=== PATIENT | female | born 2000 | race Caucasian/White ===

== ENCOUNTER 2019-06-09 07:34 | Day surgery (SDC) | payer BC ==
[~2019-06-09 07:34] MED LIST: Lactated Ringers 1,000 ML IV SCH; Lidocaine 1% with EPINEPHrine 1:100,000 20 ML MDV ONE; Sodium Chloride 0.9% 10 ML SDV IV PRN; Sodium Chloride 0.9% 10 ML Syringe FLUSH PRN; Sodium Chloride 0.9% 2.5 ML Syringe FLUSH PRN; ceFAZolin 2 GM in Premix Bag 1 BAG IV ONE
[2019-06-09] MEDS ORDERED: Ondansetron 4 MG/2 ML SDV ONE (07:38)
[2019-06-09] MEDS ORDERED: Propofol 200 MG/20 ML SDV ONE ×2 (07:38→08:17)
[2019-06-09] MEDS ORDERED: fentaNYL 100 MCG/2 ML SDV ONE ×2 (07:38→09:47)
[2019-06-09] MEDS ORDERED: Midazolam 1 MG/ML 2 ML SDV ONE (07:38)
--- NOTE | 2019-06-09 07:50 | PCM.PREANE ---
Preanesthetic Assessment - Anesthesia/Transfusion/Family Hx Anesthesia History: Prior Anesthesia Without Reaction Family History of Anesthesia Reaction: No Transfusion History: No Prior Transfusion(s) Intubation History: Unknown - Review of Systems General: No Symptoms Pulmonary: No Symptoms Cardiovascular: No Symptoms Gastrointestinal: No Symptoms Neurological: No Symptoms Other: Reports: None - Physical Assessment Height: 5 ft 3 in Weight: 71.668 kg ASA Class: 2 Mental Status: Alert & Oriented x3 Airway Class: Mallampati = 2 Dentition: Reports: Normal Dentition Thyro-Mental Finger Breadths: 3 Mouth Opening Finger Breadths: 3 ROM/Head Extension: Full Lungs: Clear to Auscultation, Normal Respiratory Effort Cardiovascular: Regular Rate, Regular Rhythm - Allergies Allergies/Adverse Reactions: Allergies Allergy/AdvReac Type Severity Reaction Status Date / Time lactose Allergy Stomach Verified 06/04/19 10:40 Upset - Blood Blood Available: No - Anesthesia Plan Pre-Op Medication Ordered: None - Acknowledgements Anesthesia Type Planned: General Anesthesia Pt an Appropriate Candidate for the Planned Anesthesia: Yes Alternatives and Risks of Anesthesia Discussed w Pt/Guardian: Yes Pt/Guardian Understands and Agrees with Anesthesia Plan: Yes PreAnesthesia Questionnaire HEENT History: Reports: None Cardiovascular History: Reports: None Respiratory History: Reports: None Gastrointestinal History: Reports: None Genitourinary History: Reports: None Musculoskeletal History: Reports: None Neurological History: Reports: None Psychiatric History: Reports: None Endocrine/Metabolic History: Reports: None Hematologic History: Reports: None Immunologic History: Reports: None Oncologic (Cancer) History: Reports: None Dermatologic History: Reports: Eczema - Past Surgical History Head Surgeries/Procedures: Reports: None HEENT Surgical History: Reports: Oral Surgery, Other (See Below) Other HEENT Surgeries/Procedures: left ear surgery and wisdom teeth extraction Cardiovascular Surgical History: Reports: None Respiratory Surgical History: Reports: None GI Surgical History: Reports: None Female Surgical History: Reports: None Endocrine Surgical History: Reports: None Neurological Surgical History: Reports: None Musculoskeletal Surgical History: Reports: None Oncologic Surgical History: Reports: None - SUBSTANCE USE Smoking Status *Q: Former Smoker Tobacco Use Within Last Twelve Months: Other (See Below) Recreational Drug Use History: No - HOME MEDS Home Medications: Home Meds . [No Known Home Meds] 06/04/19 [History] - CURRENT (IN HOUSE) MEDS Current Meds: Current Medications Lactated Ringer's (Ringers, Lactated) 1,000 mls @ 125 mls/hr IV ASDIRECTED MARQUIS Sodium Chloride (Saline Flush) 10 ml FLUSH ASDIRECTED PRN PRN Reason: Keep Vein Open Sodium Chloride (Saline Flush) 2.5 ml FLUSH ASDIRECTED PRN PRN Reason: Keep Vein Open Sodium Chloride (Normal Saline) 10 ml IV ASDIRECTED PRN PRN Reason: IV Use Discontinued Medications Fentanyl (Sublimaze) Confirm Administered Dose 100 mcg .ROUTE .STK-MED ONE Stop: 06/09/19 07:39 Cefazolin Sodium/Dextrose 2 gm (/ Premix) 50 mls @ 100 mls/hr IV ONETIME ONE Stop: 06/07/19 22:53 Lidocaine/Epinephrine (Xylocaine 1% With Epinephrine 1:100,000) Confirm Administered Dose 20 ml .ROUTE .STK-MED ONE Stop: 06/09/19 07:20 Midazolam HCl (Versed 1 Mg/Ml) Confirm Administered Dose 2 mg .ROUTE .STK-MED ONE Stop: 06/09/19 07:39 Ondansetron HCl (Zofran) Confirm Administered Dose 4 mg .ROUTE .STK-MED ONE Stop: 06/09/19 07:39 Propofol (Diprivan 20 Ml) Confirm Administered Dose 200 mg .ROUTE .STK-MED ONE Stop: 06/09/19 07:39
[2019-06-09] MEDS ORDERED: Sodium Chloride 0.9% 20 ML ONE (07:53)
[2019-06-09] MEDS ORDERED: ceFAZolin 1 GM Vial ONE (07:53)
[2019-06-09] MEDS ORDERED: Bupivacaine 0.5% 10 ML SDV ONE ×2 (08:27→08:40)
[2019-06-09] MEDS ORDERED: Octyl 2-Cyanoacrylate 1 Tube ONE (08:54)
--- NOTE | 2019-06-09 09:09 | PCM.OPNOTE ---
- General Post-Op/Procedure Note Date of Surgery/Procedure: 06/09/19 Operative Procedure(s): Excision of left breast fibroadenoma Findings: 3.5 x 2.5 x 1 cm left breast mass that appears to be a fibroadenoma Pre Op Diagnosis: Left breast fibroadenoma Post-Op Diagnosis: same Anesthesia Technique: MAC Primary Surgeon: Mary Kay Collins Fluid Replacement, Intraop: 800 EBL in mLs: 5 Condition: Good
[2019-06-09] MEDS ORDERED: fentaNYL 100 MCG/2 ML SDV IVPUSH PRN (09:45)
--- NOTE | 2019-06-09 09:57 | PCM.POSTAN ---
POST ANESTHESIA ASSESSMENT - MENTAL STATUS Mental Status: Alert, Oriented - VITAL SIGNS Vital Signs: Last Vital Signs Temp 36.2 C 06/09/19 09:08 Pulse 65 06/09/19 09:38 Resp 12 06/09/19 09:38 BP 114/69 06/09/19 09:38 Pulse Ox 99 06/09/19 09:38 - RESPIRATORY Respiratory Status: Respiratory Rate WNL, Airway Patent, O2 Saturation Stable - CARDIOVASCULAR CV Status: Pulse Rate WNL, Blood Pressure Stable - GASTROINTESTINAL GI Status: No Symptoms - PAIN Pain Score: 0 - POST OP HYDRATION Hydration Status: Adequate & Stable - OBSERVATIONS Free Text/Narrative:: no anesthesia problems
--- NOTE | 2019-06-09 10:32 | PCM48HPAN ---
Post Anesthesia Note - EVALUATION WITHIN 48HRS OF ANESTHETIC Vital Signs in Normal Range: Yes Patient Participated in Evaluation: Yes Respiratory Function Stable: Yes Airway Patent: Yes Cardiovascular Function Stable: Yes Hydration Status Stable: Yes Pain Control Satisfactory: Yes Nausea and Vomiting Control Satisfactory: Yes Mental Status Recovered: Yes Vital Signs: Last Vital Signs Temp 36.2 C 06/09/19 09:08 Pulse 67 06/09/19 09:59 Resp 12 06/09/19 09:59 BP 113/74 06/09/19 09:59 Pulse Ox 99 06/09/19 09:59 - COMMENTS/OBSERVATIONS Free Text/Narrative:: no anesthesia problems
--- NOTE | 2019-06-09 14:48 | OR ---
SURGEON: MARY KAY COLLINS MD DATE OF PROCEDURE: 06/09/2019 PREOPERATIVE DIAGNOSIS: Left breast fibroadenoma. POSTOPERATIVE DIAGNOSIS: Left breast fibroadenoma. PROCEDURE PERFORMED: Left breast fibroadenoma excision. PRIMARY SURGEON: Mary Kay Collins MD. ANESTHESIA: General LMA. FLUIDS: 800 mL of crystalloid. ESTIMATED BLOOD LOSS: 5 mL. FINDINGS: 3.5 x 2.5 x 1 cm firm left breast mass consistent with fibroadenoma. COMPLICATIONS: None. INDICATIONS: The patient is a 18-year-old female who recently developed a firm mass in the left breast. Preoperative ultrasound showed a mass with features consistent with fibroadenoma. The patient and I discussed her options, and she would like to undergo surgical excision of this mass. I explained the procedure; expected perioperative course; and the risks including bleeding, infection, or damage to surrounding structures including alteration of sensation around the nipple. The patient verbalized understanding and wishes to proceed. PROCEDURE IN DETAIL: The patient was brought into the OR and placed on the OR table in supine position. A time-out was completed verifying the patient's name, age, date of , allergies, and procedure to be performed. General LMA anesthesia was induced. The left breast was prepped and draped in usual standard fashion. I outlined the medial areolar border. I anesthetized the area with 1% lidocaine with epinephrine. A 15 blade was used to make an incision along the medial border of the areola from the 8 o'clock to 10 o'clock position. Cautery was used to dissect down to the level of the breast tissue. I then elevated the skin of the breast medially and dissected down towards the left breast mass using electrocautery. Once I was over the top of the mass, I then carried my dissection down towards the chest wall. I immediately encountered a firm mass that appeared pearlescent. This was grasped with an Allis. I elevated the mass and dissected around it using electrocautery. Once it was free from the surrounding breast tissue, it was placed on the back field and measured. It measured 3.5 x 2.5 x 1 cm in size. Its features were consistent with that of a fibroadenoma. Cautery was then used to achieve hemostasis in the wound cavity. I irrigated it with normal saline until it ran clear. The breast tissue was then closed with layers of interrupted 3-0 Vicryl up to the incision. The incision was closed with interrupted 3-0 Vicryl in the subcutaneous fat layer and the skin was closed with running 4-0 Monocryl stitch. Dermabond and sterile dressings were applied. The patient tolerated the procedure well and was taken to the PACU in stable condition. All counts were complete and correct at the end of the case. LETICIA TAN /[id number]
== END 2019-06-09 10:25 | disposition home or self-care (01) ==
LOC: MW.SDS 07:34
PROVIDERS: ATTEND Surgery
DX: D24.2 Benign neoplasm of left breast (principal); F17.290 Nicotine dependence, other tobacco product, uncomplicated; Z91.018 Allergy to other foods
CPT/HCPCS: 19120; 81025; A9270; J0690; J2250; J2405; J2704; J3010; J3490; J7120; 88305